=== PATIENT | male | born 1970 | race Caucasian/White ===

== ENCOUNTER 2017-06-05 16:45 | Emergency (ER) | payer OTHER ==
[~2017-06-05] VITALS: Ht 152.4 cm; Wt 90.0 kg
[~2017-06-05 16:45] MED LIST: DICL50TA11 PO; METH500T PO; OXYC-281 PO; PRED20TA PO
[2017-06-05 16:50] VITALS: Ht 152.4 cm; Wt 90.0 kg
[2017-06-06] MEDS ORDERED: SOD CHLORIDE 0.9% 1,000 ML IV STA (01:50)
--- NOTE | 2017-06-06 01:56 | ERD ---
ER Documentation Chief Complaint Chief Complaint BODY ACHES,DIZZY, WEAK HPI 46-year-old male presents here to emergency department for complaints of dizziness, spinning sensation upon rapid movement. Patient also is complaining of body aches, weakness. Patient has been having runny nose nasal congestion lately. Patient does not have any cough. Patient denies any fever or chills. Patient denies any chest pain or palpitations. Patient denies any headache. Patient denies any head injury. Patient did not take any medications to help with symptoms. Patient is complaining of body aches, throbbing pain, succession scale, not better or worse with anything. ROS All systems reviewed and are negative except as per history of present illness. Medications Home Meds Active Scripts Ibuprofen* (Motrin*) 400 Mg Tab, 400 MG PO Q6H Y for PAIN AND OR ELEVATED TEMP, #30 TAB Prov:MISSY GUAJARDO NP 06/06/17 Cetirizine Hcl* (Zyrtec*) 10 Mg Capsule, 10 MG PO DAILY, #30 TAB.CHEW Prov:MISSY GUAJARDO NP 06/06/17 Meclizine Hcl* (Antivert*) 12.5 Mg Tab, 25 MG PO Q6H Y for DIZZINESS, #20 TAB Prov:MISSY GUAJARDO NP 06/06/17 Diclofenac Sodium* (Diclofenac Sodium*) 50 Mg Tablet.dr, 50 MG PO TID, #15 TAB Prov:NICOLE MIRZA DO 12/04/15 Methocarbamol* (Robaxin*) 500 Mg Tab, 500 MG PO Q6, #20 TAB Prov:NICOLE MIRZA DO 12/04/15 Oxycodone Hcl-Acetaminophen* (Percocet*) 5-325 Mg Tablet, 1 TAB PO Q6 Y for PAIN LEVEL 6-10, #12 TAB Prov:NICOLE MIRZA DO 12/04/15 Prednisone* (Prednisone*) 20 Mg Tab, 40 MG PO DAILY for 4 Days, TAB Prov:NICOLE MIRZA DO 12/04/15 Allergies Allergies: Coded Allergies: No Known Allergy (Unverified , 06/05/17) PMhx/Soc History of Surgery: No Anesthesia Reaction: No Hx Neurological Disorder: No Hx Respiratory Disorders: No Hx Cardiac Disorders: No Hx Psychiatric Problems: No Hx Miscellaneous Medical Probl: Yes (Gerd, depression, back surgery) Hx Alcohol Use: No Hx Substance Use: No Hx Tobacco Use: Yes (vape) Smoking Status: Former smoker FmHx Family History: No coronary disease, No diabetes, No other Physical Exam Vitals Vital Signs Date Time Temp Pulse Resp B/P Pulse Ox O2 Delivery O2 Flow Rate FiO2 06/06/17 05:00 102 141/72 06/05/17 16:50 98.1 120 20 173/90 94 Physical Exam GENERAL: The patient is well developed and appropriate for usual state of health, in no apparent distress.. HEENT: Atraumatic. Ears: Normal tympanic membrane, no erythema or bulging. No ear canal swelling. No ear discharge. Nose:. Erythematous nasal turbinates w / clear nasal discharge throat: oropharynx clear. No tonsillar swelling or tonsillar exudates. No lymphadenopathy. CHEST: Clear to auscultation bilaterally. There are no rales, wheezes or rhonchi. HEART: Tachycardic rate with irregular heart rhythm. No murmurs, clicks, rubs or gallops. No S3 or S4. ABDOMEN: Soft, nontender and nondistended. Good bowel sounds. No rebound or guarding. No gross peritonitis. No gross organomegaly or masses. No Mcneill sign or McBurney point tenderness. BACK: No midline or flank tenderness. EXTREMITIES: Equal pulses bilaterally. There is no peripheral clubbing, cyanosis or edema. No focal swelling or erythema. Full range of motion. Grossly neurovascularly intact. NEURO: Alert and oriented. Cranial nerves 2-12 intact. Motor strength in all 4 extremities with 5/5 strength. Sensation grossly intact. Normal speech and gait. Positive Reina-Hallpike exam. SKIN: There is no apparent rash or petechia. The skin is warm and dry. HEMATOLOGIC AND LYMPHATIC: There is no evidence of excessive bruising or lymphedema. No gross cervical, axillary, or inguinal lymphadenopathy. Result Diagram: 06/06/17 02006/06/17 020 Results 24 hrs Laboratory Tests Test 06/06/17 02:00 White Blood Count 9.610^3/ul Red Blood Count 5.0610^6/ul Hemoglobin 15.6g/dl Hematocrit 45.3% Mean Corpuscular Volume 89.5fl Mean Corpuscular Hemoglobin 30.8pg Mean Corpuscular Hemoglobin Concent 34.4g/dl Red Cell Distribution Width 12.8% Platelet Count 15495^3/UL Mean Platelet Volume 10.6fl Neutrophils % 64.9% Lymphocytes % 16.8% Monocytes % 16.7% Eosinophils % 0.9% Basophils % 0.3% Nucleated Red Blood Cells % 0.0/100WBC Neutrophils # 6.210^3/ul Lymphocytes # 1.610^3/ul Monocytes # 1.610^3/ul Eosinophils # 0.110^3/ul Basophils # 0.010^3/ul Nucleated Red Blood Cells # 0.010^3/ul Urine Color BRIGITTE Urine Clarity SLIGHTLY CLOUDY Urine pH 5.0 Urine Specific [place] 1.033 Urine Ketones NEGATIVEmg/dL Urine Nitrite NEGATIVEmg/dL Urine Bilirubin 1+mg/dL Urine Urobilinogen 2+mg/dL Urine Leukocyte Esterase NEGATIVELeu/ul Urine Microscopic RBC 14/HPF Urine Microscopic WBC 16/HPF Urine Mucus MANY/HPF Urine Hemoglobin NEGATIVEmg/dL Urine Glucose NEGATIVEmg/dL Urine Total Protein 2+mg/dl Sodium Level 144mmol/L Potassium Level 3.4mmol/L Chloride Level 105mmol/L Carbon Dioxide Level 25mmol/L Anion Gap 17 Blood Urea Nitrogen 16mg/dl Creatinine 1.19mg/dl Glucose Level 97mg/dl Calcium Level 9.3mg/dl Total Bilirubin 0.4mg/dl Direct Bilirubin 0.00mg/dl Indirect Bilirubin 0.4mg/dl Aspartate Amino Transf (AST/SGOT) 28IU/L Alanine Aminotransferase (ALT/SGPT) 36IU/L Alkaline Phosphatase 136IU/L Total Protein 8.1g/dl Albumin 4.7g/dl Globulin 3.40g/dl Albumin/Globulin Ratio 1.38 Lipase 52U/L Current Medications Medications (Trade) Dose Ordered Sig/Elijah Route PRN Reason Start Time Stop Time Status Last Admin Dose Admin Sodium Chloride (NS) 1,000 ml @ 1,000 mls/hr Q1H STAT IV 06/06/17 01:50 06/06/17 02:49 DC 06/06/17 02:01 Meclizine HCl (Antivert) 25 mg ONCE ONCE PO 06/06/17 02:00 06/06/17 02:01 DC 06/06/17 02:03 Meclizine was given here in emergency department, Normal saline IV bolus was given here in emergency department for rehydration, patient tolerated IV fluids. EKG was done, read by me and is sinus tachycardia to 123 bpm normal axis, there is no ST changes or changes in the EKG that indicates any cardiac emergencies at this time. Patient's EKG was also reviewed by Dr. Cuadra. Impression: no acute findings on EKG PROCEDURE: CT BRAIN WITHOUT CONTRAST CLINICAL INDICATION: 46-year-old male with seizure and trauma. TECHNIQUE: The study was performed utilizing a GE [employer] VCT 64-slice CT scanner. Direct axial sections were obtained from the foramen magnum to the vertex without the use of intravenous contrast material. Sagittal and coronal reformations were obtained. One or more the following dose reduction techniques were utilized: automated exposure control, adjustment of the mA and/or kV according to patient's size and/or the use of iterative reconstruction technique. DICOM images are available. The images were viewed on a PACS workstation. CTD/vol = 43.4 mGy; Total Exam DLP = 900.3 mGy-cm. COMPARISON: None. FINDINGS: The ventricles have a normal size, shape and position. There is no evidence for mass effect or midline shift. There are no intracranial areas of abnormal attenuation. There is no evidence for acute intra or extra-axial blood. The bony calvarium is intact. The partially visualized paranasal sinuses and mastoid air cells are without significant abnormal soft tissue. IMPRESSION: Unremarkable noncontrast CT scan of the brain. .Ricardo Marquez MD, MD Date Time Electronically viewed and signed by .Ricardo Marquez MD, on 06/06/2017 03:31 .M/ CC: MISSY GUAJARDO NP Procedures/MDM Medical decision making. Patient symptoms was likely is consistent with viral syndrome, body aches congestion and dizziness most likely is from vertigo. Patient CT scan of the brain does not show any central lesions causing vertigo. Patient verbalized feeling much better. Patient was given fluids here in the emergency department and heart rate has improved. Patient does not have any symptoms of any cardio pulmonary emergencies at this time. No symptoms of any SVT or any cardiopulmonary emergencies at the EKG. Patient was given prescription for meclizine, ibuprofen, Zyrtec, Flonase, is advised to follow-up with primary care doctor in 2-3 days reevaluation of symptoms. Patient was advised to return to emergency department for any worsening symptoms. Disposition: Home. Stable Departure Diagnosis: Primary Impression: Viral syndrome Additional Impression: Benign positional vertigo Laterality: bilateral Qualified Code: H81.13 - Benign paroxysmal positional vertigo due to bilateral vestibular disorder Condition: Stable Patient Instructions: Benign Positional Vertigo, Viral Syndrome (Adult) MISSY GUAJARDO NP Jun 06, 2017 01:56
[2017-06-06] MEDS ORDERED: MECLIZINE 12.5 MG TAB PO ONE (02:00)
[2017-06-06 02:54] LABS: ABNORMAL IP MESSAGE 1; BASOPHILS % 0.3 % (0.0-2.0); EOSINOPHILS # 0.1 10^3/ul (0.0-0.5); EOSINOPHILS % 0.9 % (0.0-7.0); HEMATOCRIT 45.3 % (42.0-52.0); HEMOGLOBIN 15.6 g/dl (14.0-18.0); LYMPHOCYTES # 1.6 10^3/ul (0.8-2.9); LYMPHOCYTES % 16.8 % (15.0-51.0); MEAN CORPUSCULAR HEMOGLOBIN 30.8 pg (29.0-33.0); MEAN CORPUSCULAR HGB CONC 34.4 g/dl (32.0-37.0); MEAN CORPUSCULAR VOLUME 89.5 fl (82.0-101.0); MEAN PLATELET VOLUME 10.6 fl (7.4-10.4); MONOCYTE # 1.6 10^3/ul (0.3-0.9); MONOCYTES % 16.7 % (0.0-11.0); NEUTROPHIL # 6.2 10^3/ul (1.6-7.5); NEUTROPHILS % 64.9 % (39.0-77.0); PLATELET COUNT 306 10^3/UL (140-415); POSITIVE DIFF @See below; RED BLOOD COUNT 5.06 10^6/ul (4.70-6.10); RED CELL DISTRIBUTION WIDTH 12.8 % (11.5-14.5); WHITE BLOOD COUNT 9.6 10^3/ul (4.8-10.8)
[2017-06-06 03:11] LABS: ALBUMIN 4.7 g/dl (3.3-4.9); ALBUMIN/GLOBULIN RATIO 1.38; BILIRUBIN,INDIRECT 0.4 mg/dl (0-1.1); BILIRUBIN,TOTAL 0.4 mg/dl (0.2-1.3); CALCIUM 9.3 mg/dl (8.4-10.2); CREATININE 1.19 mg/dl (0.61-1.24); POTASSIUM 3.4 mmol/L (3.5-5.1); TOTAL PROTEIN 8.1 g/dl (6.1-8.1)
--- NOTE | 2017-06-06 03:32 | RADRPT ---
PROCEDURE: CT BRAIN WITHOUT CONTRAST CLINICAL INDICATION: 46-year-old male with seizure and trauma. TECHNIQUE: The study was performed utilizing a [employer] VCT 64-slice CT scanner. Direct axia l sections were obtained from the foramen magnum to the vertex without the use of intravenous contra st material. Sagittal and coronal reformations were obtained. One or more the following dose reduct ion techniques were utilized: automated exposure control, adjustment of the mA and/or kV according t o patient's size and/or the use of iterative reconstruction technique. DICOM images are available. T he images were viewed on a PACS workstation. CTD/vol = 43.4 mGy; Total Exam DLP = 900.3 mGy-cm. COMPARISON: None. FINDINGS: The ventricles have a normal size, shape and position. There is no evidence for mass effect or midl ine shift. There are no intracranial areas of abnormal attenuation. There is no evidence for acute intra or extra-axial blood. The bony calvarium is intact. The partially visualized paranasal sinuse s and mastoid air cells are without significant abnormal soft tissue. IMPRESSION: Unremarkable noncontrast CT scan of the brain. .Ricardo Marquez MD, MD Date Time Electronically viewed and signed by .Ricardo Marquez MD, on 06/06/2017 03:31 .[place]/
[2017-06-06 04:18] LABS: ADD UMIC YES; UR ASCORBIC ACID NEGATIVE (NEGATIVE); UR BILIRUBIN (Dip) 1+ mg/dL (NEGATIVE); UR BLOOD (Dip) NEGATIVE (NEGATIVE); UR CLARITY SLIGHTLY CLOUDY (CLEAR); UR COLOR AMBER (YELLOW); UR GLUCOSE (Dip) NEGATIVE (NEGATIVE); UR KETONES (Dip) NEGATIVE (NEGATIVE); UR LEUKOCYTE ESTERASE (Dip) NEGATIVE Leu/ul (NEGATIVE); UR MUCUS MANY /HPF (NONE SEEN); UR NITRITE (Dip) NEGATIVE (NEGATIVE); UR RBC 14 /HPF (0-5); UR SPECIFIC GRAVITY (Dip) 1.033 (1.003-1.030); UR TOTAL PROTEIN (Dip) 2+ mg/dl (NEGATIVE); UR UROBILINOGEN (Dip) 2+ mg/dL (NEGATIVE)
[2017-06-06] MEDS ORDERED: IBUP400T22 PO (04:42)
[2017-06-06] MEDS ORDERED: CETI10CA PO (04:42)
[2017-06-06] MEDS ORDERED: MECL12.574 PO (04:42)
[2017-06-06 05:00] VITALS: BP 141/72; PULSE 102
== END 2017-06-06 05:00 | disposition home or self-care (01) ==
LOC: FTE 16:45
DX: B34.9 Viral infection, unspecified (principal); H81.13 Benign paroxysmal vertigo, bilateral; Z87.891 Personal history of nicotine dependence
CPT/HCPCS: 36415; 70450; 80053; 81001; 83690; 85025; 93005; J7030; Z7502; Z7610